=== PATIENT | female | born 1935 | race Caucasian/White ===

== ENCOUNTER 2017-04-25 11:11 | Observation (INO) ==
[2017-04-25 12:51] LABS: Basophils # 0.1 10*3/uL (0.0-0.2); Basophils % 0.4 % (0.0-0.8); Eosinophils % 0.1 % (0.00-10.9); Hematocrit 32.1 VOL% (35.7-47.0); Hemoglobin 10.7 GM/DL (12.0-16.0); Immature Granulocytes % 0.6 %; Immature Granulocytes Absolute 0.07 #; Lymphocytes # 1.6 10*3/uL (1.4-4.0); Lymphocytes % 12.6 % (21.3-54.2); Mean Corpuscular HGB Conc 33.3 GM/DL (32-36); Mean Corpuscular Hemoglobin 31 PG (27-34); Mean Platelet Volume 11.1 FL (9.6-12.0); Monocytes # 0.5 10*3/uL (0.11-0.8); Monocytes % 3.9 % (1.7-12.7); Neutrophils # 10.3 10*3/uL (1.4-7.4); Neutrophils % 82.4 % (38.7-73.9); Platelet Count 234 T/CUMM (130-400); Red Blood Count 3.49 MC/CUMM (3.8-5.5); White Blood Count 12.5 T/CUMM (4-12)
[2017-04-25] MEDS ORDERED: ACETAMINOPHEN 500 MG TABLET ONE (13:13)
[2017-04-25] MEDS ORDERED: ACETAMINOPHEN 500 MG TABLET PO STA (13:16)
[2017-04-25 13:32] LABS: Albumin 3.1 G/DL (3.4-5.0); Bilirubin,Total 0.5 MG/DL (0.2-1.0); Calcium 8.6 MG/DL (8.5-10.1); Osmolality,Calculated 306.1 MOS/KG (273-304); Potassium 4.7 MMOL/L (3.5-5.1); Total Protein 6.3 G/DL (6.4-8.3); Troponin I Only 0.029 NG/ML (0.00-0.045)
[2017-04-25] MEDS ORDERED: SODIUM CHLORIDE 0.9% 500 ML IV STA (13:39)
[2017-04-25 14:34] LABS: Apearance,Urine Slightly Hazy (Clear); Bacteria,Urine Few /HPF (Few); Bilirubin,Urine Negative (Negative); Blood, Urine Negative (Negative); Glucose,Urine (UA) Negative (Negative); Ketones,Urine Negative (Negative); Mucus,Urine Occasional /LPF (Occasional); Nitrite,Urine Negative (Negative); Protein,Urine Negative; RBC,Urine <1 /HPF (0-4); Squamous Epithelial Cell,Urine Occasional /HPF (0-10); Urine Color Yellow (Yellow); Urine Specific Gravity 1.012 (1.001-1.035); Urine Urobilinogen < 2.0 EU/DL (0.2-1.0); WBC,Urine 2 /HPF (0-6)
[2017-04-25] MEDS ORDERED: INFLUENZA VIRUS VACCINE 0.5 ML SYRINGE IM ONE (15:57)
[2017-04-25] MEDS ORDERED: ACETAMINOPHEN 325 MG TABLET PO PRN (16:09)
[2017-04-25] MEDS ORDERED: DOCUSATE SODIUM 100 MG CAPSULE PO PRN (16:09)
[2017-04-25] MEDS ORDERED: LACTULOSE 20 GM/30 ML UDCUP PO PRN (16:09)
[2017-04-25] MEDS ORDERED: ONDANSETRON 4 MG/2 ML VIAL IV PRN (16:09)
[2017-04-25 16:43] LABS: Free T4 (Free Thyroxine) 1.4 NG/DL (0.76-1.46); Thyroid Stimulating Hormone 0.161 uIU/ml (0.358-3.74)
[2017-04-25] MEDS: SODIUM CHLORIDE 0.9% 1,000 ML IV SCH (17:31)
[2017-04-25] MEDS: PANTOPRAZOLE 40 MG TABLET PO SCH (17:32)
[2017-04-25] MEDS ORDERED: MELATONIN 3 MG TABLET PO ONE (23:04)
[2017-04-26] MEDS: SODIUM CHLORIDE 0.9% 1,000 ML IV SCH ×2 (01:36→19:23)
[2017-04-26 04:52] LABS: Basophils # 0.1 10*3/uL (0.0-0.2); Eosinophils # 0.3 10*3/uL (0.0-0.87); Eosinophils % 3.4 % (0.00-10.9); Hematocrit 25.2 VOL% (35.7-47.0); Immature Granulocytes % 0.5 %; Immature Granulocytes Absolute 0.04 #; Lymphocytes # 2.4 10*3/uL (1.4-4.0); Lymphocytes % 31.2 % (21.3-54.2); Mean Corpuscular HGB Conc 33.3 GM/DL (32-36); Mean Corpuscular Hemoglobin 31 PG (27-34); Mean Corpuscular Volume 93.3 FL (87-102); Mean Platelet Volume 11.7 FL (9.6-12.0); Monocytes # 0.6 10*3/uL (0.11-0.8); Neutrophils # 4.3 10*3/uL (1.4-7.4); Neutrophils % 55.9 % (38.7-73.9); Red Cell Distribution Width 14.1 % (9.3-17.3)
[2017-04-26 05:10] LABS: White Blood Count 7.7 T/CUMM (4-12)
[2017-04-26 05:11] LABS: Hemoglobin 8.4 GM/DL (12.0-16.0); Platelet Count 179 T/CUMM (130-400)
[2017-04-26 05:20] LABS: Calcium 7.8 MG/DL (8.5-10.1); Osmolality,Calculated 304.7 MOS/KG (273-304); Potassium 4.4 MMOL/L (3.5-5.1); Risk Ratio 3.22; VLDL CHOLESTEROL 23.8 MG/DL
[2017-04-26 05:38] LABS: Albumin 2.4 G/DL (3.4-5.0); Osmolality,Calculated 303.8 MOS/KG (273-304); Potassium 4.6 MMOL/L (3.5-5.1); Thyroid Stimulating Hormone 0.26 uIU/ml (0.358-3.74)
[2017-04-26] MEDS ORDERED: LOSARTAN 50 MG TABLET PO SCH (09:00)
[2017-04-26] MEDS ORDERED: Cyanocobalamin (Vitamin B-12) [Vitamin B-12] 5,000 MCG SL SCH (09:00)
[2017-04-26] MEDS: ESTRADIOL 1 MG TABLET PO SCH (10:36)
[2017-04-26] MEDS: LEVOTHYROXINE 88 MCG TABLET PO SCH (10:36)
[2017-04-26] MEDS: ASPIRIN EC 81 MG TABLET PO SCH (10:37)
[2017-04-26] MEDS: PANTOPRAZOLE 40 MG TABLET PO SCH (10:37)
[2017-04-27] MEDS: SODIUM CHLORIDE 0.9% 1,000 ML IV SCH ×2 (02:33→02:34)
[2017-04-27 04:03] LABS: Basophils # 0.1 10*3/uL (0.0-0.2); Basophils % 0.9 % (0.0-0.8); Eosinophils # 0.4 10*3/uL (0.0-0.87); Eosinophils % 5.4 % (0.00-10.9); Hematocrit 23.1 VOL% (35.7-47.0); Hemoglobin 7.7 GM/DL (12.0-16.0); Immature Granulocytes % 0.6 %; Immature Granulocytes Absolute 0.04 #; Lymphocytes # 2.5 10*3/uL (1.4-4.0); Lymphocytes % 39.1 % (21.3-54.2); Mean Corpuscular HGB Conc 33.3 GM/DL (32-36); Mean Corpuscular Hemoglobin 31 PG (27-34); Mean Corpuscular Volume 93.5 FL (87-102); Mean Platelet Volume 11.2 FL (9.6-12.0); Monocytes # 0.5 10*3/uL (0.11-0.8); Monocytes % 7.1 % (1.7-12.7); Neutrophils # 3.1 10*3/uL (1.4-7.4); Neutrophils % 46.9 % (38.7-73.9); Platelet Count 163 T/CUMM (130-400); Red Blood Count 2.47 MC/CUMM (3.8-5.5); Red Cell Distribution Width 13.9 % (9.3-17.3); White Blood Count 6.5 T/CUMM (4-12)
[2017-04-27 04:34] LABS: Calcium 7.7 MG/DL (8.5-10.1); Osmolality,Calculated 295.6 MOS/KG (273-304); Potassium 4.1 MMOL/L (3.5-5.1)
[2017-04-27] MEDS ORDERED: CYANOCOBALAMIN 500 MCG TABLET PO SCH (09:00)
[2017-04-27] MEDS: PANTOPRAZOLE 40 MG TABLET PO SCH (10:25)
[2017-04-27] MEDS: ESTRADIOL 1 MG TABLET PO SCH (10:25)
[2017-04-27] MEDS: LEVOTHYROXINE 88 MCG TABLET PO SCH (10:25)
[2017-04-27] MEDS: ASPIRIN EC 81 MG TABLET PO SCH (10:26)
[2017-04-27 12:45] VITALS: BP 142/65
== END 2017-04-27 14:20 | disposition home or self-care (01) ==
LOC: EDUNIT# → N.EDINP 11:11 → N.ED 11:11 → N.EDINP 15:33 → N.2E 15:42
PROVIDERS: ADMIT Pediatrics; ATTEND Pediatrics